=== PATIENT | female | born 1950 | race Caucasian/White ===

== ENCOUNTER → 2016-10-19 | Day surgery (SDC) | payer OTHER ==
[~2016-10-19] VITALS: Ht 165.1 cm; Wt 59.8 kg
[~2016-10-19] MED LIST: ACETAMINOPHEN 500 MG CPLT PO PRN; ASPI1TAB69 PO; ATROPINE SULFATE 1% OPHT SOLN 2 ML BTL ONE; BALANCED SALT SOLN OPHT IRRIG 15 ML BTL ONE; DEXAMETHASONE SOD PHOS 4 MG/ML VIAL ONE; DEXTROSE 50% IN WATER 50 ML VIAL(D50) ONE; DO NOT ADM ANY ANTICOAGULANT DRUGS XX PRN; EPINEPHrine HCL (1:1000) 1 MG/ML VIAL ONE; FAMOTIDINE 20 MG/2 ML VIAL ONE; FURO1TAB62 PO; INSULIN HUMAN REGULAR 1,000 UNITS/10 ML VIAL SQ PRN; LACTATED RINGER'S 1000 ML INJ 1,000 ML IV ONE; LACTATED RINGER'S 1000 ML IV SCH; LISI-515 PO; METF500 PO; METOPROLOL TARTRATE 25 MG TAB PO PRN; MIDAZOLAM HCL 2 MG/2 ML VIAL ONE; ONDANSETRON HCL 4 MG/2 ML VIAL IM PRN; ONDANSETRON HCL 4 MG/2 ML VIAL IV PUSH ONE; PAXI40TA PO; PHENYLEPH/NS 1000 MCG/10 ML SYR IV ONE; POTA10TA2 PO; PROPOFOL 200 MG/20 ML AMP IV ONE; SODIUM CHLORID 0.9% 500 ML IV SCH; STERILE WATER FOR INJ 20 ML VIAL ONE; TOBRAMYCIN/DEXAMETHASONE OPTH OINT 3.5 GM TUBE ONE; TRAM50TA PO; TRAZ50TA12 PO; TRIAMCINOLONE ACETONIDE/PF 40 MG/ML OPTH VIAL ONE; VITA10002 PO; ceFAZolin INJ 1,000 MG VIAL ONE; ePHEDrine/NS 50 MG/5 ML SYR IV ONE; fentaNYL CITRATE 250 MCG/5 ML AMP ONE; oxyCODONE/ACETAMINOPHEN 5 MG/325 MG TAB PO PRN
[2016-10-19 08:58] VITALS: BP 105/56; PULSE 75; RESP 16; TEMP 97.6; O2SAT 99
[2016-10-19] MEDS: ATROPINE SULFATE 1% OPHT SOLN 5 ML BTL RIGHT EYE SCH ×4 (09:00→09:45)
[2016-10-19] MEDS: PHENYLEPHRINE HCL 2.5% OPTH SOLN 2 ML BTL RIGHT EYE SCH ×4 (09:00→09:45)
[2016-10-19] MEDS: TROPICAMIDE 1% OPTH SOLN 2 ML BTL RIGHT EYE SCH ×4 (09:00→09:45)
[2016-10-19] MEDS: CYCLOPENTOLATE HCL 1% OPHT SOLN 2 ML BTL RIGHT EYE SCH ×4 (09:00→09:45)
[2016-10-19 09:27] LABS: AUTOMATED NEUTROPHIL # 5.5 TH/MM3 (1.8-7.7); BASOPHIL # 0.1 TH/MM3 (0-0.2); BASOPHIL % 0.7 % (0.0-2.0); EOSINOPHIL # 0.6 TH/MM3 (0-0.4); EOSINOPHIL % 6.9 % (0.0-4.0); HEMATOCRIT 37.1 % (35.0-46.0); HEMO FLAGS DIFF FINAL; LYMPH % 22.5 % (9.0-44.0); MEAN CORPUSCULAR HGB CONC 34.4 % (32.0-36.0); MONO % 7.4 % (0.0-8.0); NEUT % 62.5 % (16.0-70.0); PLATELET COUNT 260 TH/MM3 (150-450); RED BLOOD COUNT 4.13 MIL/MM3 (4.00-5.30); RED CELL DISTRIBUTION WIDTH 13.1 % (11.6-17.2); WHITE BLOOD COUNT 8.8 TH/MM3 (4.0-11.0)
[2016-10-19 13:10] VITALS: BP 126/61; PULSE 88; RESP 16; TEMP 97.8; O2SAT 98
--- NOTE | 2016-10-20 06:48 | EKG ---
Date Performed: 10/19/2016 Time Performed: 08:36:40 PTAGE: 66 years EKG: Sinus rhythm NORMAL ECG PREVIOUS TRACING : 10/22/2000 14.49 Compared to prior tracing no significant change DOCTOR: Jignesh Johnson Interpretating Date/Time 10/20/2016 06:45:45
--- NOTE | 2016-10-22 06:18 | MP ---
cc: ZEENAT CANNON M.D. DATE OF SURGERY: 10/19/2016 PREOPERATIVE DIAGNOSIS Full-thickness macular hole, right eye. POSTOPERATIVE DIAGNOSIS Full-thickness macular hole, right eye. PROCEDURE Trans pars plana vitrectomy with gas-fluid exchange, right eye. SURGEON Dr. Zeenat Cannon ANESTHESIA General laryngeal mask anesthesia. INDICATION Ms. Gogo Huitron is a 66-year-old woman with a history of a macular hole in the right eye with decreasing vision down to 20/100. This was confirmed on OCT in the office. She was offered elective vitrectomy with gas-fluid exchange and face-down post-op positioning at an option to try to close the hole and regain some central visual functioning. The risks and benefits of surgery were discussed with the patient including the fact that it would probably cause progression of her cataract. She wished to proceed and informed consent was obtained. DETAILS OF PROCEDURE She was brought to [facility] Operating Room-1 and placed on the operating table. Appropriate anesthesia monitoring devices were applied. She was placed under general anesthesia using laryngeal mask. The right eye was identified as the operative site and then prepped and draped in the usual sterile fashion. A lid speculum was placed. At this point an appropriate timeout was called with the surgical team agreeing to the procedure and the surgical site. Using the Kaden 23-gauge vitrectomy system the trocar cannulas were placed 4 mm posterior to the limbus after first displacing the conjunctiva and with a beveled entrance through the sclera. The first was placed at approximately 8:45 o'clock and verified to be in the posterior pole. An infusion cannula was affixed to it and turned on. The balance salt solution had been treated with D50 due to the patient's history of type 2 diabetes and her phakic status. Two additional trocar cannulas were placed at 10 and 2 o'clock. A small amount of Kenalog was injected into the posterior pole to help visualize the vitreous. Using the BIOM wide angle viewing system a core vitrectomy was carried out with the light pipe illumination and the vitrectomy cutter probe. After the vitrectomy had been carried out centrally and into the periphery the BIOM was replaced with the flat contact lens for higher viewing of the macula. The posterior hyaloid membrane was still attached. It was coaxed up with aspiration by both the soft-tip linear extrusion needle and the vitrectomy cutter on aspiration only. Once the posterior hyaloid had been peeled off the retinal surface the remnant of the cortical vitreous as well as posterior hyaloid were then removed with the vitrectomy cutter finisher to the periphery. The patient had, had LASIK surgery and had a cataract and therefore the clarity of the view in my opinion was not good enough to allow safe peeling of the ILM so this was foregone. Instead a soft-tip linear extrusion needle was used to perform an air-fluid exchange after the peripheral vitreous had first been examined with the indirect ophthalmoscope and scleral depression. There were two pigmented spots at about 12 o'clock just posterior to the vitreous base. These did not appear to be associated with open holes but as a precaution the laser indirect was used to try and place some laser retinopexy around them. Again, because the view through the edge of the LASIK flap was not allowing sharp focus of the laser this could not be done, although attempted. Next, the air was exchanged for a 24% mixture of SF6 gas which was slowly insufflated through the eye. The plugs were placed back in the cannula and then the cannulas were removed one by one with tamponade of the site with a cotton swab and diathermy to the overlying conjunctival wound. This left the eye with good pressure and no visible air leaks. Atropine drops were placed on the cornea followed by subconjunctival actions of Ancef 125 mg in 0.5 cc and Decadron 2 mg in 0.5 cc. The lid speculum was removed and the patient was undraped. TobraDex ointment was placed on the cornea and the right eye was patched and shielded. The patient had the laryngeal mask removed in the room and was returned to Recovery laying on her left side. When awake and cooperative she will be asked to start face-down positioning. ADDENDUM The prep of the skin around the eye was actually not treated in the usual fashion, but because of the patient's history of Betadine allergy the skin was cleaned off with baby shampoo followed by alcohol. The lids were also scrubbed with the baby shampoo solution. Two drops of Betadine were placed on the cornea at the end of the prep. So the prep was slightly different than the usual prep due to the patient's allergy. MD PABLO Martínez /11:51 AM /6:06 AM
== END | disposition home or self-care (01) ==
LOC: HSDC 08:05
PROVIDERS: ATTEND Ophthalmology
DX: H35.341 Macular cyst, hole, or pseudohole, right eye (principal); I10 Essential (primary) hypertension
CPT/HCPCS: 00145; 67042; 85025; 93005; J0171; J0690; J1100; J2250; J2370; J2405; J3010; J3300; J7120